=== PATIENT | male | born 1965 | race American Indian/Alaskan Native ===

== ENCOUNTER 2017-01-19 10:30 | Emergency (ER) | payer MEDICAID, OTHER ==
[2017-01-19 11:02] VITALS: BP 155/103
--- NOTE | 2017-01-19 11:23 | EDM.PDOC ---
ED HISTORY OF PRESENT ILLNESS - General Chief Complaint: Respiratory Problem Stated Complaint: HARD TO BREATH Time Seen by Provider: 01/19/17 11:10 Source: Reports: Patient, RN notes reviewed History Limitations: Reports: No limitations - History of Present Illness INITIAL COMMENTS - FREE TEXT/NARRATIVE: 51-year-old gentleman presents emergency department a complaint of shortness of breath, he states he's been somewhat short of breath with a cough for the last month but the last week or so has gotten significantly worse does produce a white sputum has felt fevers and chills at home and has noticed more difficulty breathing when he exerts himself, his shortness of breath is so significant that he had quit smoking over the last 3 days - Related Data Allergies/ADRs: Allergies Allergy/AdvReac Type Severity Reaction Status Date / Time ibuprofen Allergy Swelling Verified 01/19/17 10:53 Home Meds: Home Meds NK [No Known Home Meds] 01/19/17 [History] Past Medical History - Past Health History Medical/Surgical History: Denies Medical/Surgical History Social & Family History - Tobacco Use Smoking Status *Q: Current Every Day Smoker Years of Tobacco use: 38 Packs/Tins Daily: 0.5 ED ROS GENERAL - Review of Systems Review Of Systems: See Below Constitutional: Reports: fever, chills HEENT: Reports: No symptoms Respiratory: Reports: Shortness of Breath, Wheezing, Cough, Sputum Cardiovascular: Reports: No symptoms GI/Abdominal: Reports: No symptoms : Reports: no symptoms Musculoskeletal: Reports: no symptoms ED EXAM, GENERAL - Physical Exam Exam: See Below Free Text/Narrative:: General: Male, not in any distress, alert and oriented x3 HEENT: head is atraumatic normocephalic, eyes pupils equal round reactive to light, sclera clear no conjunctivitis appreciated. Ears tympanic membranes clear and sarkar landmarks and light reflex are present bilaterally canals are clear. Nose no septal deviation, nares are clear, no blood present. Mouth mucosa is moist and pink no erythema or exudate noted in soft palate, tongue is midline uvula is midline, dentition is intact. Neck: Supple no thyromegaly no tracheal deviation. Nodes: Cervical nodes subclavicular nodes nontender no palpable lymphadenopathy noted. Lungs: clear to auscultation bilaterally with symmetrical respirations, no adventitious noise appreciated. CV: Regular rate and rhythm S1 and S2 appreciated no murmurs rubs or gallops noted. Course - Vital Signs Last Recorded V/S: Last Vital Signs Temp 98.8 F 01/19/17 10:59 Pulse 78 01/19/17 10:59 Resp 16 01/19/17 10:59 BP 155/103 H 01/19/17 10:59 Pulse Ox 94 L 01/19/17 10:59 Departure - Departure Time of Disposition: 11:22 Disposition: Home, Self-Care 01 Condition: good Clinical Impression: Bronchitis Forms: ED Department Discharge Additional Instructions: [place] take full course of antibiotics, use albuterol inhaler as needed for shortness of breath symptoms, Please followup with your primary care provider in 3-5 days if not better, please call return to the emergency department with worsening of symptoms. - Assessment/Plan Plan: Assessment Acuity = acute Site and laterality = bronchitis complicated patient with known tobacco use and dependence Etiology = probable bacterial cause Manifestations = dyspnea Location of injury = home Lab values = none Plan Empirically treat with azithromycin and albuterol inhaler follow up with primary care 3-5 days for reevaluation if no improvement Patient was in agreement with the plan all questions were answered, they were instructed to return to the emergency department or call for worsening symptoms. This note was dictated using [employer] voice recognition software please call with any questions.
== END 2017-01-19 11:48 | disposition home or self-care (01) ==
LOC: JP.ED 10:30
DX: J40 Bronchitis, not specified as acute or chronic (principal); F17.210 Nicotine dependence, cigarettes, uncomplicated; Z88.8 Allergy status to other drugs, medicaments and biological substances
CPT/HCPCS: 99283; 99285

== ENCOUNTER 2017-04-11 11:01 | Emergency (ER) | payer MEDICAID ==
[2017-04-11 11:37] VITALS: BP 152/99
--- NOTE | 2017-04-11 13:05 | EDM.PDOC ---
ED HPI GENERAL MEDICAL PROBLEM - General Chief Complaint: Back Pain or Injury Stated Complaint: LOW BACK PAIN Time Seen by Provider: 04/11/17 12:44 Source of Information: Reports: Patient History Limitations: Reports: No Limitations - History of Present Illness INITIAL COMMENTS - FREE TEXT/NARRATIVE: This patient complains of right-sided low back pain this patient complains of right-sided low back pain for 4 days. It happened after he was doing some vacuuming cleaning carpets. He denies any leg weakness. No bladder or bowel dysfunction. Pain is described as severe. No history of previous back injuries Right Back Pain Score (Numeric/FACES): 10 - Related Data Allergies Allergy/AdvReac Type Severity Reaction Status Date / Time ibuprofen Allergy Swelling Verified 01/19/17 10:53 Home Meds: Home Meds NK [No Known Home Meds] 01/19/17 [History] Past Medical History - Past Health History Medical/Surgical History: Denies Medical/Surgical History Musculoskeletal History: Reports: Other (See Below) Other Musculoskeletal History: L FOOT SURGICAL REPAIR WITH HARDWARE - Infectious Disease History Infectious Disease History: Reports: Chicken Pox, Mumps Social & Family History - Family History Family Medical History: Noncontributory - Tobacco Use Smoking Status *Q: Former Smoker Years of Tobacco use: 38 Packs/Tins Daily: 0.5 Used Tobacco, but Quit: Yes Month Tobacco Last Used: MARCH - Caffeine Use Caffeine Use: Reports: Coffee - Recreational Drug Use Recreational Drug Use: No ED ROS GENERAL - Review of Systems Review Of Systems: ROS reveals no pertinent complaints other than HPI. ED EXAM,LOWER BACK PAIN/INJURY - Physical Exam Exam: See Below Exam Limited By: No Limitations General Appearance: Alert, WD/WN, Moderate Distress Eye Exam: Bilateral Eye: Normal Inspection Respiratory/Chest: Lungs Clear Cardiovascular: Regular Rate, Rhythm Back Exam: Decreased Range of Motion, Muscle Spasm (Right paraspinous muscle spasm), Paraspinal Tenderness. No: CVA Tenderness (R), CVA Tenderness (L), Vertebral Tenderness Neurological: No Motor/Sensory Deficits, Other (Straight leg raise is negative patella and Achilles reflexes normal. Normal sensation.) Skin Exam: Warm, Intact Course - Vital Signs Last Recorded V/S: Last Vital Signs Temp 99.1 C H 04/11/17 11:45 Pulse 68 04/11/17 11:45 Resp 15 04/11/17 11:45 BP 152/99 H 04/11/17 11:45 Pulse Ox 95 04/11/17 11:45 Departure - Departure Time of Disposition: 13:05 Disposition: Home, Self-Care 01 Condition: Fair Clinical Impression: Low back pain, Paraspinal muscle spasm - Discharge Information Forms: ED Department Discharge Additional Instructions: Take nor toe 5/325 one or 2 tablets every 4 hours for pain, #20 prescribed. Flexeril 10 mg 3 times daily for muscle spasm #15 prescribed Both medications can cause sedation and impair driving so use with caution. Apply heat. See your doctor if no better in a few days. If he suddenly developed leg weakness or any problems with her bladder or bowels he should be reevaluated in an emergency department immediately.
== END 2017-04-11 13:18 | disposition home or self-care (01) ==
LOC: JP.ED 11:01
DX: M54.5 Low back pain (principal); M62.830 Muscle spasm of back; Z98.890 Other specified postprocedural states; Z87.891 Personal history of nicotine dependence; Z88.8 Allergy status to other drugs, medicaments and biological substances
CPT/HCPCS: 99283

== ENCOUNTER 2019-01-06 20:07 | Emergency (ER) | payer MEDICAID ==
[2019-01-06 20:34] VITALS: BP 168/117
--- NOTE | 2019-01-06 21:15 | EDM.PDOC ---
ED HPI GENERAL MEDICAL PROBLEM - General Chief Complaint: ENT Problem Stated Complaint: SORE THROAT Time Seen by Provider: 01/06/19 20:45 Source of Information: Reports: Patient History Limitations: Reports: No Limitations - History of Present Illness INITIAL COMMENTS - FREE TEXT/NARRATIVE: 53-year-old male with a persistent sore throat for the past 4-6 weeks. He was given a prescription at the clinic but didn't fill it, then went to [facility] and was given some topical nystatin and a combination of medications for sore throat. He also has a persistent cough, denies any significant fevers. He has generalized body aches and intermittent headaches. No rashes or joint pains, denies nausea or vomiting. Has a very persistent cough but no shortness of breath. Onset: Unknown/Unsure Improves with: Reports: None Worsens with: Reports: None Associated Symptoms: Reports: Cough, Headaches, Malaise. Denies: Fever/Chills, Shortness of Breath Throat Pain Score (Numeric/FACES): 10 - Related Data Allergies Allergy/AdvReac Type Severity Reaction Status Date / Time ibuprofen Allergy Swelling Verified 01/06/19 20:36 Home Meds: Home Meds Mouth Wash Blm 1 dose PO Q4HR 01/06/19 [History] Nystatin 100,000 unit PO ASDIRECTED 01/06/19 [History] Past Medical History - Past Health History Medical/Surgical History: Denies Medical/Surgical History Musculoskeletal History: Reports: Other (See Below) Other Musculoskeletal History: L FOOT SURGICAL REPAIR WITH HARDWARE. jaw & nose fracture - Infectious Disease History Infectious Disease History: Reports: Chicken Pox, Measles, Mumps Social & Family History - Family History Family Medical History: Noncontributory - Tobacco Use Smoking Status *Q: Former Smoker Used Tobacco, but Quit: Yes Month/Year Tobacco Last Used: 8 months - Caffeine Use Caffeine Use: Reports: Coffee - Recreational Drug Use Recreational Drug Use: Yes Recreational Drug Type: Reports: Marijuana/Hashish, Methamphetamine ED ROS ENT - Review of Systems Review Of Systems: See Below Constitutional: Reports: Malaise. Denies: Fever, Chills HEENT: Reports: Throat Pain. Denies: Rhinitis Respiratory: Reports: Cough. Denies: Shortness of Breath, Sputum GI/Abdominal: Denies: Abdominal Pain, Nausea, Vomiting : Reports: No Symptoms Musculoskeletal: Reports: Muscle Pain (Generalized body aches, shoulders and neck hurt) Skin: Reports: No Symptoms Neurological: Reports: Headache ED EXAM, ENT - Physical Exam Exam: See Below Exam Limited By: No Limitations General Appearance: Alert, No Apparent Distress Eye Exam: Bilateral Eye: Normal Inspection Ears: Normal TMs Mouth/Throat: Other (Pharyngeal erythema, no exudate) Head: Atraumatic Neck: Other (No adenopathy but he is sore to palpation in the submandibular areas bilaterally) Respiratory/Chest: No Respiratory Distress, Lungs Clear (Lungs are completely clear despite the cough) Cardiovascular: Regular Rate, Rhythm Neurological: Alert, Oriented Psychiatric: Normal Affect, Normal Mood Skin: Warm, Dry Course - Vital Signs Last Recorded V/S: Last Vital Signs Temp 97.5 F 01/06/19 20:34 Pulse 78 01/06/19 20:34 Resp 16 01/06/19 20:34 BP 168/117 H 01/06/19 20:34 Pulse Ox 95 01/06/19 20:34 - Orders/Labs/Meds Labs: Laboratory Tests 01/06/19 01/06/19 Range/Units 21:10 21:10 WBC 11.5 H (4.5-11.0) K/uL RBC 4.66 (4.30-5.90) M/uL Hgb 14.5 (12.0-15.0) g/dL Hct 43.8 (40.0-54.0) % MCV 94 (80-98) fL MCH 31 (27-31) pg MCHC 33 (32-36) % Plt Count 353 (150-400) K/uL Neut % (Auto) 58 (36-66) % Lymph % (Auto) 29 (24-44) % Piatt % (Auto) 10 H (2-6) % Eos % (Auto) 2 (2-4) % Baso % (Auto) 1 (0-1) % Monoscreen Negative (NEGATIVE) - Re-Assessments/Exams Free Text/Narrative Re-Assessment/Exam: 01/06/19 21:15 Influenza antigens were obtained, as well as a CBC and Monospot. 01/06/19 21:36 Influences were negative, Monospot negative, CBC relatively normal without an elevated white count. His symptoms have been ongoing long enough that I think a course of antibiotics covering atypicals is worthwhile. He'll be placed on a five-day course of Zithromax and can recheck in one week if not improving. Departure - Departure Time of Disposition: 21:51 Disposition: Home, Self-Care 01 Condition: Good Clinical Impression: Bronchitis Pharyngitis Qualifiers: Pharyngitis/tonsillitis etiology: unspecified etiology Qualified Code(s): J02.9 - Acute pharyngitis, unspecified - Discharge Information Instructions: Sore Throat, [id number] Referrals: PCP,None [Primary Care Provider] - Forms: ED Department Discharge Care Plan Goals: Take antibiotic for 5 days as prescribed. Drink lots of water, get rest, and consider rechecking in 5-6 days if not improving satisfactorily.
== END 2019-01-06 21:51 | disposition home or self-care (01) ==
LOC: JP.ED 20:07
DX: J40 Bronchitis, not specified as acute or chronic (principal); J02.9 Acute pharyngitis, unspecified; Z87.891 Personal history of nicotine dependence; Z79.899 Other long term (current) drug therapy; Z88.6 Allergy status to analgesic agent
CPT/HCPCS: 36415; 85025; 86308; 87804; 87804-59; 99283

== ENCOUNTER 2023-09-06 11:24 | Emergency (ER) | payer MEDICAID ==
[2023-09-06] MEDS ORDERED: Sodium Chloride 0.9% 10 ML Syringe FLUSH PRN ×2 (12:59→14:19)
[2023-09-06] MEDS ORDERED: Nitroglycerin 0.4 MG Tab.SL SL PRN (13:00)
[2023-09-06 13:10] LABS: BASOPHILS ABSOLUTE AUTO 0.17 K/uL (0.00-0.10); BASOPHILS PERCENT AUTO 1.9 % (0.1-1.3); EOSINOPHILS ABSOLUTE AUTO 0.27 K/uL (0.00-0.40); EOSINOPHILS PERCENT AUTO 3.1 % (0.0-5.4); HEMATOCRIT 26.2 % (38.4-49.7); IMMATURE GRAN PERCENT AUTO 0.2 % (0.0-0.7); LYMPHOCYTES ABSOLUTE AUTO 2.21 K/uL (0.8-3.3); LYMPHOCYTES PERCENT AUTO 25.1 % (11.4-47.7); MEAN CORPUSCULAR HEMOGLOBIN 16.6 pg (31.6-35.5); MEAN CORPUSCULAR HGB CONC 27.1 g/dL (31.6-35.5); MEAN CORPUSCULAR VOLUME 61.4 fL (81.4-99.0); MONOCYTES ABSOLUTE AUTO 0.93 K/uL (0.20-0.90); MONOCYTES PERCENT AUTO 10.6 % (3.3-12.6); NEUTROPHILS ABSOLUTE AUTO 5.21 K/uL (1.0-7.6); NEUTROPHILS PERCENT AUTO 59.1 % (40.0-78.1); PLATELET COUNT,PLT 451 K/uL (130-375); RED BLOOD CELL COUNT 4.27 M/uL (4.14-5.76); WHITE BLOOD CELL COUNT,WBC 8.8 K/uL (3.2-11.0)
[2023-09-06] MEDS ORDERED: Aspirin 81 MG Tab.Chew PO ONE (13:15)
[2023-09-06 13:23] LABS: IMMATURE GRAN ABSOLUTE AUTO 0.02 K/uL (0.00-0.23)
[2023-09-06 13:24] LABS: HEMOGLOBIN 7.1 g/dL (12.9-16.9)
[2023-09-06 13:40] LABS: PROTHROMBIN TIME 9.9 sec (9.2-10.6)
[2023-09-06 13:44] LABS: CALCIUM 7.9 mg/dL (8.5-10.1); CREATININE 0.8 mg/dL (0.8-1.3); EST CRCL DRUG DOSING (CG) 99.42 mL/min; POTASSIUM,K 3.5 mmol/L (3.6-5.2); TROPONIN I HIGH SENSITIVITY 12.7 pg/mL (<=60.3)
[2023-09-06 13:45] LABS: ANION GAP 13.5 mmol/L (5.0-14.0)
[2023-09-06 13:45] LABS: ALBUMIN 3.5 g/dL (3.4-5.0); BILIRUBIN DIRECT 0.13 mg/dL (0.0-0.2); BILIRUBIN INDIRECT 0.37; BILIRUBIN TOTAL 0.5 mg/dL (0.2-1.0); PROTEIN TOTAL,TP 7.2 g/dL (6.4-8.2)
[2023-09-06] MEDS ORDERED: Iopamidol 612 MG/ML 100 ML Bottle IV PRN (14:19)
[2023-09-06] MEDS ORDERED: Sodium Chloride 0.9% 50 ML IV SCH (14:30)
[2023-09-06 15:11] LABS: CORONAVIRUS COVID-19 NAA NEGATIVE (NEGATIVE); INFLUENZA A NAA NEGATIVE (NEGATIVE); INFLUENZA B NAA NEGATIVE (NEGATIVE); RESPIRATORY SYNCYTIAL VIR NAA NEGATIVE (NEGATIVE)
[2023-09-06 18:31] VITALS: BP 156/77; PULSE 80
== END 2023-09-06 18:33 | disposition home or self-care (01) ==
LOC: JP.ED 11:24
DX: D50.9 Iron deficiency anemia, unspecified (principal); Z88.8 Allergy status to other drugs, medicaments and biological substances; Z79.899 Other long term (current) drug therapy; Z20.822 Contact with and (suspected) exposure to COVID-19
CPT/HCPCS: 0241U; 36415; 36430; 71046; 74177; 80048; 80076; 82272; 84484; 85025; 85610; 86850; 86900; 86901; 86920; 86922; 93005; 99285; J3490; P9016; Q9967

== ENCOUNTER 2023-09-24 08:17 | Day surgery (SDC) | payer MEDICAID ==
[2023-09-24] MEDS ORDERED: fentaNYL 50 MCG/ML SDV ONE (09:32)
[2023-09-24] MEDS ORDERED: Midazolam 1 MG/ML 2 ML SDV ONE (09:32)
[2023-09-24] MEDS ORDERED: Propofol 200 MG/20 ML SDV ONE ×3 (09:33→10:39)
[2023-09-24] MEDS ORDERED: Lactated Ringers 1,000 ML IV SCH (10:00)
[2023-09-24 12:09] VITALS: BP 153/86; PULSE 71
== END 2023-09-24 12:30 | disposition home or self-care (01) ==
LOC: JP.SDS 08:17
PROVIDERS: ATTEND Family Medicine
DX: D12.8 Benign neoplasm of rectum (principal); K29.50 Unspecified chronic gastritis without bleeding; D62 Acute posthemorrhagic anemia; I10 Essential (primary) hypertension; Z88.5 Allergy status to narcotic agent
CPT/HCPCS: 43239; 45381; 45385; 88305; 88341; 88342; 88364; 88365; J2250; J2704; J3010; J7120

== ENCOUNTER 2023-10-10 09:50 | Emergency (ER) | payer MEDICAID ==
[2023-10-10] MEDS ORDERED: Ondansetron 4 MG Tab.DIS PO ONE (11:20)
[2023-10-10 11:29] LABS: BASOPHILS ABSOLUTE AUTO 0.09 K/uL (0.00-0.10); BASOPHILS PERCENT AUTO 1.3 % (0.1-1.3); EOSINOPHILS ABSOLUTE AUTO 0.25 K/uL (0.00-0.40); EOSINOPHILS PERCENT AUTO 3.7 % (0.0-5.4); HEMATOCRIT 30.6 % (38.4-49.7); HEMOGLOBIN 8.7 g/dL (12.9-16.9); IMMATURE GRAN ABSOLUTE AUTO 0.03 K/uL (0.00-0.23); IMMATURE GRAN PERCENT AUTO 0.4 % (0.0-0.7); LYMPHOCYTES ABSOLUTE AUTO 2.14 K/uL (0.8-3.3); MEAN CORPUSCULAR HEMOGLOBIN 18.2 pg (31.6-35.5); MEAN CORPUSCULAR HGB CONC 28.4 g/dL (31.6-35.5); MONOCYTES ABSOLUTE AUTO 0.68 K/uL (0.20-0.90); MONOCYTES PERCENT AUTO 10.2 % (3.3-12.6); NEUTROPHILS PERCENT AUTO 52.4 % (40.0-78.1); PLATELET COUNT,PLT 459 K/uL (130-375); WHITE BLOOD CELL COUNT,WBC 6.7 K/uL (3.2-11.0)
[2023-10-10 11:32] VITALS: BP 160/92; PULSE 72
[2023-10-10 11:50] LABS: A/G RATIO 0.9 (1.2-2.2); ALANINE AMINOTRANSFERASE,ALT 36 U/L (12-78); ALBUMIN 3.3 g/dL (3.4-5.0); ALKALINE PHOSPHATASE 85 U/L (46-116); ANION GAP 8.7 mmol/L (5.0-14.0); ASPARTATE AMNIOTRANSFERASE,AST 26 U/L (15-37); BILIRUBIN TOTAL 0.3 mg/dL (0.2-1.0); BLOOD UREA NITROGEN,BUN 20 mg/dL (7-18); CALCIUM 7.9 mg/dL (8.5-10.1); CARBON DIOXIDE,CO2 26 mmol/L (21-32); CHLORIDE,CL 110 mmol/L (100-108); CREATININE 0.9 mg/dL (0.8-1.3); EST CRCL DRUG DOSING (CG) 88.38 mL/min; ESTIMATED GFR 98 mL/min (>60); GLUCOSE RANDOM 101 mg/dL (74-106); POTASSIUM,K 3.7 mmol/L (3.6-5.2); PROTEIN TOTAL,TP 7.2 g/dL (6.4-8.2); RED BLOOD CELL COUNT 4.78 M/uL (4.14-5.76); SODIUM,NA 141 mmol/L (140-148)
== END 2023-10-10 12:10 | disposition home or self-care (01) ==
LOC: JP.ED 09:50
DX: R11.2 Nausea with vomiting, unspecified (principal); T37.8X5A Adverse effect of other specified systemic anti-infectives and antiparasitics, initial encounter; D12.8 Benign neoplasm of rectum; D50.9 Iron deficiency anemia, unspecified; B96.81 Helicobacter pylori [H. pylori] as the cause of diseases classified elsewhere; I10 Essential (primary) hypertension; J45.909 Unspecified asthma, uncomplicated; F17.210 Nicotine dependence, cigarettes, uncomplicated; Z79.899 Other long term (current) drug therapy; Z88.6 Allergy status to analgesic agent
CPT/HCPCS: 36415; 74019; 80053; 83690; 85025; 99284; Q0162

== ENCOUNTER 2023-11-28 15:26 | Emergency (ER) | payer MEDICAID ==
[2023-11-28] MEDS ORDERED: Sodium Chloride 0.9% 10 ML Syringe FLUSH PRN (15:58)
[2023-11-28 16:14] LABS: BASOPHILS ABSOLUTE AUTO 0.08 K/uL (0.00-0.10); BASOPHILS PERCENT AUTO 1.3 % (0.1-1.3); EOSINOPHILS ABSOLUTE AUTO 0.03 K/uL (0.00-0.40); EOSINOPHILS PERCENT AUTO 0.5 % (0.0-5.4); HEMATOCRIT 37.5 % (38.4-49.7); HEMOGLOBIN 11.2 g/dL (12.9-16.9); IMMATURE GRAN ABSOLUTE AUTO 0.03 K/uL (0.00-0.23); IMMATURE GRAN PERCENT AUTO 0.5 % (0.0-0.7); LYMPHOCYTES ABSOLUTE AUTO 1.21 K/uL (0.8-3.3); LYMPHOCYTES PERCENT AUTO 20.1 % (11.4-47.7); MEAN CORPUSCULAR HEMOGLOBIN 20.7 pg (31.6-35.5); MEAN CORPUSCULAR HGB CONC 29.9 g/dL (31.6-35.5); MONOCYTES PERCENT AUTO 14.9 % (3.3-12.6); NEUTROPHILS ABSOLUTE AUTO 3.78 K/uL (1.0-7.6); NEUTROPHILS PERCENT AUTO 62.7 % (40.0-78.1); PLATELET COUNT,PLT 338 K/uL (130-375); RED BLOOD CELL COUNT 5.42 M/uL (4.14-5.76)
[2023-11-28] MEDS: Ondansetron 4 MG Tab.DIS PO ONE (16:18)
[2023-11-28] MEDS: Pantoprazole 40 MG Tab.CR PO ONE (16:18)
[2023-11-28 16:31] LABS: MEAN CORPUSCULAR VOLUME 69.2 fL (81.4-99.0)
[2023-11-28 16:34] LABS: A/G RATIO 0.8 (1.2-2.2); ALANINE AMINOTRANSFERASE,ALT 31 U/L (12-78); ALBUMIN 3.7 g/dL (3.4-5.0); ALKALINE PHOSPHATASE 86 U/L (46-116); ASPARTATE AMNIOTRANSFERASE,AST 54 U/L (15-37); BILIRUBIN TOTAL 0.3 mg/dL (0.2-1.0); BLOOD UREA NITROGEN,BUN 29 mg/dL (7-18); CALCIUM 8.4 mg/dL (8.5-10.1); CARBON DIOXIDE,CO2 23 mmol/L (21-32); CHLORIDE,CL 104 mmol/L (100-108); CREATININE 1.5 mg/dL (0.8-1.3); EST CRCL DRUG DOSING (CG) 53.03 mL/min; ESTIMATED GFR 53 mL/min (>60); GLUCOSE RANDOM 97 mg/dL (74-106); POTASSIUM,K 3.8 mmol/L (3.6-5.2); PROTEIN TOTAL,TP 8.4 g/dL (6.4-8.2); SODIUM,NA 141 mmol/L (140-148)
== END 2023-11-28 17:39 | disposition home or self-care (01) ==
LOC: JP.ED 15:26
DX: R10.13 Epigastric pain (principal); J10.1 Influenza due to other identified influenza virus with other respiratory manifestations; N17.9 Acute kidney failure, unspecified; E86.0 Dehydration; D50.9 Iron deficiency anemia, unspecified; I10 Essential (primary) hypertension; F17.210 Nicotine dependence, cigarettes, uncomplicated; Z79.899 Other long term (current) drug therapy; Z88.6 Allergy status to analgesic agent
CPT/HCPCS: 36415; 80053; 83690; 85025; 86850; 86900; 86901; 99284; A9270; Q0162